=== PATIENT | female | born 1995 | race Caucasian/White ===

== ENCOUNTER 2020-07-23 07:50 | Inpatient (IN) ==
--- NOTE | 2020-07-23 08:13 | History & Physical Report ---
Date of Service July 23, 2020 Assessment & Plan (1) Encounter for induction of labor: Admission and Anticipated Discharge Date Admission Date: July 23, 2020 Patient presents to labor and delivery for elective induction. cervix favorable. plan pitocin induction. arom as indicated. epidural on demand. fetus category one. anticipate . History of Present Illness Chief Complaint: elective induction Primary Care Provider: Ramsey Douglass Patient is a 24yowf with iup at 39 1/7 weeks who presents to labor and delivery for elective induction. Her has been essentially uncomplicated. She had iol in her first for pet at 40 weeks. She has a hx of seizures that are "stress induced". Was seen by Dr. Hilario. She had several in the second trimester but since decreasing activity and improved stress, notes less. Has not had one in quite some time. DR. Hilario does not think this is epilepsy. Has a bicornuate uterus. Growth ultrasound at 32 weeks was wnl. Patient had a +ffn on 06/08. Patient had COVID in Apr and has had a full recovery. labs--A+/ab-/ri/rprnr/hiv-/hepb-/gc/ct-/gtt x 2 neg/gbs neg/ cf/sma-/low risk panorama Allergies Allergy/AdvReac Type Severity Reaction Status Date / Time latex Allergy Rash Verified 07/21/20 10:08 lubricant Allergy Rash Verified 07/21/20 10:08 nickel Allergy swelling Verified 07/21/20 10:08 red dye AdvReac Mild nausea and Verified 07/21/20 10:08 vomiting Home Medications Medication Instructions Recorded Confirmed Type prenat.vits,yrn,vcg-ockv-sztru 1 tab PO DAILY 06/08/20 07/21/20 History [ Vitamin] aspirin 81 mg PO DAILY 07/14/20 07/21/20 History calcium 250 mg PO DAILY 07/14/20 07/21/20 History famotidine 20 mg PO DAILY 07/14/20 07/21/20 History ferrous sulfate 325 mg PO DAILY 07/14/20 07/21/20 History ondansetron HCl 4 mg tablet 4 mg PO Q6H PRN #30 tab 07/14/20 07/21/20 Rx ondansetron HCl 4 mg tablet 4 mg PO TID PRN 5 Days #30 tab 07/14/20 07/21/20 Rx Patient History Medical History (Updated 07/23/20 @ 08:34 by Keri Dejesus MD, FACOG) Bicornuate uterus COVID-19 April 03 2020 Endometriosis Headache disorder Hip dysplasia History of PCOS Seizures Family History Daughter Duplex kidney Duplication of ureter Mother Asthma Grandmother (Maternal) Diabetes Hypertension Grandmother (Paternal) Diabetes Grandfather (Maternal) Heart disease Aunt Cancer Social History Smoking Status: Former smoker Hx Alcohol Use: No Hx Substance Use: No Preferred Language: Turkmen marital status: Single marital status details: FOB: Kenotn([birth year]) [phone] Current Living Situation: Family Current Living Situation Comment: lives with grandmother and daughter, 2 cats, does not clean litter. current occupational status: employed current occupation: [employer] Feels Safe at Home: Yes OB History G1--, 40 weeks, 6#3oz, induction for pet. [employer] History noncontributory. Physical Exam Constitutional: WD/WN, vitals as above Gastrointestinal (Abdomen): soft, nt, gravid Psychiatric: A+Ox3, euthymic affect Genitourinary: cx--80/-2 toco--genesis efm--130s with mod variabiltiy, accels to 160s, no decels Results & Data ([facility]) Vital Signs (Past 12 Hours) Vital Signs Temp Pulse Resp BP 07/23/20 08:05 96 H 118/77 07/23/20 08:04 37.1 C 18 Coding Level of Care Code None Diagnoses Encounter for induction of labor Z34.90
[2020-07-23] MEDS ORDERED: OXYTOCIN 30 UNITS/500 ML BAG IV PRN ×3 (08:19→17:04)
[2020-07-23] MEDS: LACTATED RINGER'S 1,000 ML IV PRN ×2 (08:52→11:42)
[2020-07-23 08:59] LABS: Hematocrit (blood only) 37.1 % (37-47); Hemoglobin 12.5 g/dL (12.0-16.0); Mean Corpuscular Hemoglobin 27.5 pg (25-34); Mean Corpuscular Hgb Conc 33.7 g/dL (32-36); Mean Corpuscular Volume 81.7 fL (80-100); Mean Platelet Volume 9.1 fL (7.4-10.4); Platelet Count 348 K/uL (130-400); RDW Standard Deviation 41.7 fL (36.4-46.3); Red Blood Count 4.54 M/uL (4.2-5.4)
[2020-07-23] MEDS ORDERED: SODIUM CHLORIDE 0.9% INJ 10 ML VIAL ONE (10:49)
[2020-07-23] MEDS ORDERED: BUPIVACAINE 0.25% 30 ML VIAL ONE (10:49)
[2020-07-23] MEDS ORDERED: ePHEDrine sulfate 50 MG/ML AMP ONE (10:49)
[2020-07-23] MEDS ORDERED: fentaNYL citrate 100 MCG/2 ML VIAL ONE (10:50)
[2020-07-23] MEDS ORDERED: fentaNYL 2MCG/ML ROPIVACAINE 1.25MG/ML 100 ML BAG EPI ONE (10:50)
--- NOTE | 2020-07-23 11:45 | Anesthesiology Consultation ---
Date of Service July 23, 2020 Assessment & Plan Chart Review Chart Review: Acceptable Risk for Labor Epidural Consults Requested none History Height/Weight Height: 5 ft Weight: 80.832 kg Allergies Allergy/AdvReac Type Severity Reaction Status Date / Time latex Allergy Rash Verified 07/21/20 10:08 lubricant Allergy Rash Verified 07/21/20 10:08 nickel Allergy swelling Verified 07/21/20 10:08 red dye AdvReac Mild nausea and Verified 07/21/20 10:08 vomiting Medications Home Medications Medication Instructions Recorded Confirmed Last Taken prenat.vits,yrn,ucv-sbya-izvas 1 tab PO DAILY 06/08/20 07/23/20 07/22/20 06:00 [ Vitamin] aspirin 81 mg PO DAILY 07/14/20 07/23/20 07/22/20 0600 calcium 250 mg PO DAILY 07/14/20 07/23/20 07/22/20 06:00 famotidine 20 mg PO BID 07/14/20 07/23/20 07/22/20 20:00 ferrous sulfate 325 mg PO DAILY 07/14/20 07/23/20 07/22/20 06:00 ondansetron HCl 4 mg tablet 4 mg PO Q6H PRN #30 tab 07/14/20 07/21/20 Unknown ondansetron HCl 4 mg tablet 4 mg PO TID PRN 5 Days #30 tab 07/14/20 07/21/20 Unknown Active Medications Generic Name Dose Route Start Last Admin Trade Name Freq PRN Reason Stop Dose Admin Oxytocin 30 units in 500 mls @ 8 mls/hr 07/23/20 08:19 07/23/20 10:31 Pitocin IV 07/25/20 08:18 0.48 units/hr .Q24H PRN 8 mls/hr Labor Induction/Augmentation Titration Protocol 0.48 UNITS/HR Lactated Ringer's 1,000 mls @ 125 mls/hr 07/23/20 08:19 07/23/20 11:42 Lr IV 07/25/20 08:18 125 mls/hr .Q8H PRN Administration L&D Protocol Protocol Past Medical History Medical History Bicornuate uterus COVID-19 April 03 2020 Endometriosis Headache disorder Hip dysplasia History of PCOS Seizures Past Family History Family History Daughter Duplex kidney Duplication of ureter Mother Asthma Grandmother (Maternal) Diabetes Hypertension Grandmother (Paternal) Diabetes Grandfather (Maternal) Heart disease Aunt Cancer Social History Smoking Status: Former smoker Hx Alcohol Use: No Hx Substance Use: No substance use type: does not use Physical Exam Vital Signs Last Vital Signs Temp 37.1 C 07/23/20 09:31 Pulse 97 H 07/23/20 11:42 Resp 18 07/23/20 08:04 BP 130/74 07/23/20 11:42 Pulse Ox 100 07/23/20 11:42 Testing Laboratory Results 07/23/20 08:48
[2020-07-23] MEDS ORDERED: diphenhydrAMINE 50 MG/ML VIAL IV PRN (11:46)
[2020-07-23] MEDS ORDERED: NALOXONE HCL 0.4 MG/1 ML VIAL/CARP IV PRN (11:46)
[2020-07-23] MEDS ORDERED: ePHEDrine sulfate 50 MG/ML AMP IV PRN (11:46)
[2020-07-23] MEDS ORDERED: NALOXONE HCL 1 MG in SODIUM CHLORIDE 0.9% 1000ML 1,000 ML IV PRN (11:46)
[2020-07-23] MEDS ORDERED: fentaNYL 2MCG/ML ROPIVACAINE 1.25MG/ML 100 ML BAG EPI PRN (11:46)
--- NOTE | 2020-07-23 12:31 | Labor Progress Brief Note ---
Date of Service July 23, 2020 Subjective comfortable after epidural Assessment & Plan (1) Encounter for induction of labor: Admission and Anticipated Discharge Date Admission Date: July 23, 2020 continue current management. fetus category one. anticipate . Physical Exam Constitutional: WD/WN, vitals as above Psychiatric: A+Ox3, euthymic affect Genitourinary: cx--3/80/-2 arom--clear toco--q 3-4, pit at 8 efm--130s wtih mod variability, accels to 170s, no decels Results & Data ([facility]) Vital Signs (Past 12 Hours) Vital Signs Temp Pulse Resp BP Pulse Ox 07/23/20 12:27 100 H 99 07/23/20 12:22 77 98 07/23/20 12:18 80 113/63 07/23/20 12:17 83 99 07/23/20 12:16 72 113/65 07/23/20 12:14 76 114/66 07/23/20 12:12 78 114/67 100 07/23/20 12:10 76 117/68 07/23/20 12:08 87 118/69 07/23/20 12:07 82 100 07/23/20 12:06 74 120/65 07/23/20 12:04 110 H 121/70 07/23/20 12:02 88 124/67 100 07/23/20 12:00 78 122/67 07/23/20 11:58 83 121/66 07/23/20 11:57 78 100 07/23/20 11:56 93 H 123/67 07/23/20 11:54 81 122/66 07/23/20 11:52 88 123/68 100 07/23/20 11:50 83 120/62 07/23/20 11:48 86 121/61 07/23/20 11:47 80 100 07/23/20 11:46 120 H 123/63 07/23/20 11:44 93 H 127/68 07/23/20 11:42 97 H 130/74 100 07/23/20 11:40 84 128/63 07/23/20 11:38 83 137/67 07/23/20 11:37 90 98 07/23/20 11:36 72 144/58 H 07/23/20 11:32 88 100 07/23/20 11:30 102 H 124/59 L 07/23/20 11:27 101 H 99 07/23/20 11:26 97 H 130/76 07/23/20 11:22 95 H 100 07/23/20 11:20 95 H 91 07/23/20 11:17 101 H 100 07/23/20 11:12 95 H 89 L 07/23/20 11:07 78 100 07/23/20 11:02 79 100 07/23/20 11:01 73 122/75 07/23/20 10:58 75 119/76 07/23/20 10:57 81 100 07/23/20 09:31 37.1 C 118/77 07/23/20 08:05 96 H 118/77 07/23/20 08:04 37.1 C 18 Coding Level of Care Code None Diagnoses Encounter for induction of labor Z34.90
[2020-07-23] MEDS ORDERED: CALCIUM CARBONATE 500 MG CHEWABLE TAB PO PRN (13:13)
--- NOTE | 2020-07-23 14:37 | Labor Progress Brief Note ---
Date of Service July 23, 2020 Subjective comfortable Assessment & Plan (1) Encounter for induction of labor: Admission and Anticipated Discharge Date Admission Date: July 23, 2020 continue current management. Change since rom. fetus reassuring. anticipate . Physical Exam Constitutional: WD/WN, vitals as above Psychiatric: A+Ox3, euthymic affect Genitourinary: cx--5/75/-2 toco--q2-3, pit at 12 efm--category one Results & Data ([facility]) Vital Signs (Past 12 Hours) Vital Signs Temp Pulse Resp BP Pulse Ox 07/23/20 14:32 88 98 07/23/20 14:27 95 H 99 07/23/20 14:22 78 97 07/23/20 14:20 97 H 125/73 07/23/20 14:17 86 99 07/23/20 14:12 105 H 98 07/23/20 14:07 87 98 07/23/20 14:04 90 107/61 07/23/20 14:02 120 H 98 07/23/20 13:57 86 98 07/23/20 13:52 83 99 07/23/20 13:49 102 H 101/61 07/23/20 13:47 85 98 07/23/20 13:42 85 99 07/23/20 13:37 108 H 99 07/23/20 13:34 96 H 102/55 L 07/23/20 13:32 77 98 07/23/20 13:27 81 99 07/23/20 13:22 118 H 100 07/23/20 13:19 85 105/57 L 07/23/20 13:17 76 99 07/23/20 13:12 77 99 07/23/20 13:07 85 100 07/23/20 13:04 96 H 104/55 L 07/23/20 13:02 78 100 07/23/20 12:57 88 99 07/23/20 12:52 106 H 100 07/23/20 12:50 97 H 99/54 L 07/23/20 12:47 85 100 07/23/20 12:42 91 H 98 07/23/20 12:37 90 99 07/23/20 12:34 103 H 114/66 07/23/20 12:32 77 100 07/23/20 12:28 36.8 C 22 07/23/20 12:27 100 H 99 07/23/20 12:22 77 98 07/23/20 12:18 80 113/63 07/23/20 12:17 83 99 07/23/20 12:16 72 113/65 07/23/20 12:14 76 114/66 07/23/20 12:12 78 114/67 100 07/23/20 12:10 76 117/68 07/23/20 12:08 87 118/69 07/23/20 12:07 82 100 07/23/20 12:06 74 120/65 07/23/20 12:04 110 H 121/70 07/23/20 12:02 88 124/67 100 07/23/20 12:00 78 122/67 07/23/20 11:58 83 121/66 07/23/20 11:57 78 100 07/23/20 11:56 93 H 123/67 07/23/20 11:54 81 122/66 07/23/20 11:52 88 123/68 100 07/23/20 11:50 83 120/62 07/23/20 11:48 86 121/61 07/23/20 11:47 80 100 07/23/20 11:46 120 H 123/63 07/23/20 11:44 93 H 127/68 07/23/20 11:42 97 H 130/74 100 07/23/20 11:40 84 128/63 07/23/20 11:38 83 137/67 07/23/20 11:37 90 98 07/23/20 11:36 72 144/58 H 07/23/20 11:32 88 100 07/23/20 11:30 102 H 124/59 L 07/23/20 11:27 101 H 99 07/23/20 11:26 97 H 130/76 07/23/20 11:22 95 H 100 07/23/20 11:20 95 H 91 07/23/20 11:17 101 H 100 07/23/20 11:12 95 H 89 L 07/23/20 11:07 78 100 07/23/20 11:02 79 100 07/23/20 11:01 73 122/75 07/23/20 10:58 75 119/76 07/23/20 10:57 81 100 04/23/21 09:31 37.1 C 118/77 07/23/20 08:05 96 H 118/77 07/23/20 08:04 37.1 C 18 Coding Level of Care Code None Diagnoses Encounter for induction of labor Z34.90
[2020-07-23] MEDS ORDERED: MINERAL OIL 30 ML UDC ONE (16:46)
--- NOTE | 2020-07-23 17:05 | Delivery Summary ---
Vaginal Delivery Summary Date of Service July 23, 2020 Pre-operative Diagnosis: at 39 0/7 weeks elective induction Post-operative Diagnosis: same Procedure: pitocin induction epidural small first degree laceration and repair EBL: 300cc Anesthesia: epidural Procedure: The patient pushed to deliver a viable male in anuel position. The nose and mouth were bulb suctioned on the perineum and the rest of the was then delivered without difficulty. The baby was vigorous. The nose and mouth were again bulb suctioned and the infant was placed in the maternal abdomen for drying and attention. Cord was clamped and cut at one minute of life. Cord blood and segment obtained. Placenta delivered spontaneous, intact with a three vessel cord. Cervix/sulci/rectum were intact. A first degree perineal laceration was repaired in the normal standard fashion. Hemostasis obtained with dilute pitocin and fundal massage. Apgars were 8/9. Mother and baby doing well at the end of the delivery. Vaginal Delivery Summary and 1st Degree LAC MNP Vaginal Delivery Charge Delivery Type Details: and 1st Degree LAC
[2020-07-23] MEDS ORDERED: bisacodyL 10 MG SUPP PR PRN (17:45)
[2020-07-23] MEDS ORDERED: SUPERCREAM 0.870% 15 GM JAR EXT PRN (17:45)
[2020-07-23] MEDS ORDERED: HYDROCORTISONE ACETATE 25 MG SUPP PR PRN (17:45)
[2020-07-23] MEDS ORDERED: DIPHTHERIA/TETANUS/PERTUSSIS 0.5 ML SYR/VIAL IM ONE (17:45)
--- NOTE | 2020-07-23 18:35 | Anesthesia Procedure Note ---
Date of Service July 23, 2020 Anesthesia Post Epidural Note Vital Signs Vital Signs: Temp Pulse Resp BP Pulse Ox 36.8 C 93 H 20 116/53 L 87 L 07/23/20 14:39 07/23/20 18:04 07/23/20 14:39 07/23/20 18:04 07/23/20 16:49 Notes Mental Status: alert / awake / arousable Nausea / Vomiting: adequately controlled Pain: adequately controlled Airway Patency, RR, SpO2: stable & adequate BP & HR: stable & adequate Hydration State: stable & adequate Neuraxial Anesthesia: was administered and sensory block is resolving Anesthetic Complications: no major complications apparent and Pt Satisfied with anesthetic care Epidural: Removed without complications and With tip intact
[2020-07-23] MEDS: BENZOCAINE 20% AER SPR 82.5 GM CAN EXT PRN (19:47)
[2020-07-23] MEDS: IBUPROFEN 600 MG TAB PO PRN (20:55)
[2020-07-23] MEDS: DOCUSATE SODIUM 100 MG CAP PO SCH (20:56)
[2020-07-23] MEDS: FAMOTIDINE 20 MG TAB PO SCH (20:57)
[2020-07-23] MEDS: ACETAMINOPHEN 325 MG TAB PO PRN (23:37)
[2020-07-24] MEDS: IBUPROFEN 600 MG TAB PO PRN ×3 (02:59→19:54)
[2020-07-24 06:19] LABS: Hematocrit (blood only) 32.9 % (37-47); Hemoglobin 11.1 g/dL (12.0-16.0)
--- NOTE | 2020-07-24 07:24 | Obstetrical Progress Note ---
Date of Service <Inocencia Price DO - Last Filed: 07/24/20 07:24> July 24, 2020 Assessment & Plan <Inocencia Price DO - Last Filed: 07/24/20 07:24> (1) state: PPD #1 - PNL: Rh pos, RI, GBS neg, COVID neg - Feels well today. Eating well, voiding well, ambulating well. - Pain well controlled with ibuprofen 600mg Q4H PRN - Routine care -- OOB, ambulation, diet progression as tolerated - After discharge will have 6 week follow-up with Dr. Dejesus. Subjective <Inocencia Price DO - Last Filed: 07/24/20 07:24> Veronica Augustin is a 24 y/o female who is PPD #1 following spontaneous vaginal delivery at 39+1 weeks. She reports feeling well overall this morning. Moderate abdominal cramping and 5/10 pain well managed on analgesics. Voiding without dysuria. Tolerating meals overnight without difficulty. Patient has been able to ambulate some. She is passing gas. Has persistent lochia with some improvement this morning. Currently . Review of Systems Denies fever or chills. Denies shortness of breath or cough. Denies chest pain. Denies breast pain. Denies dysuria. Denies leg pain or leg swelling. Denies headache or changes in vision. Physical Exam <Inocencia Price DO - Last Filed: 07/24/20 07:24> General: Alert, oriented. No acute distress. Cardiac: Regular rate and rhythm. No murmurs. Respiratory: Clear to auscultation bilaterally a/p, no wheezes/rales/rhonchi. No increased work of breathing. Symmetrical chest rise. No respiratory distress. Abdomen: Soft, nontender, nondistended. Bowel sounds present. Uterus: Uterine fundus firm, palpable 1 cm below umbilicus. Lower Extremities: No lower extremity edema or swelling. No deep calf pain. Desi's negative bilaterally. Results & Data ([facility]) <Inocencia Price DO - Last Filed: 07/24/20 07:24> Vital Signs (Past 12 Hours) Vital Signs Temp Pulse Resp BP Pulse Ox 07/24/20 03:00 37.0 C 84 16 117/71 97 07/23/20 23:30 36.9 C 81 16 98/63 L 98 07/23/20 19:50 37.3 C 93 H 18 112/70 Laboratory Results 07/24/20 07/23/20 07/23/20 Range/Units 05:44 10:07 10:07 WBC (4.8-10.8) K/uL RBC (4.2-5.4) M/uL Hgb 11.1 L (12.0-16.0) g/dL Hct 32.9 L (37-47) % MCV (80-100) fL MCH (25-34) pg MCHC (32-36) g/dL RDW Std Deviation (36.4-46.3) fL RDW Coeff of Martina (11.5-14.5) % Plt Count (130-400) K/uL MPV (7.4-10.4) fL COVID-19 Eval Order Covid19 [facility] SARS-CoV-2, RNA, NAAT NEGATIVE (NEGATIVE) 07/23/20 Range/Units 08:48 WBC 8.80 (4.8-10.8) K/uL RBC 4.54 (4.2-5.4) M/uL Hgb 12.5 (12.0-16.0) g/dL Hct 37.1 (37-47) % MCV 81.7 (80-100) fL MCH 27.5 (25-34) pg MCHC 33.7 (32-36) g/dL RDW Std Deviation 41.7 (36.4-46.3) fL RDW Coeff of Martina 14.0 (11.5-14.5) % Plt Count 348 (130-400) K/uL MPV 9.1 (7.4-10.4) fL COVID-19 Eval Order SARS-CoV-2, RNA, NAAT (NEGATIVE) <Keri Dejesus MD, FACOG - Last Filed: 07/24/20 07:35> Co-Signing Physician Notes Resident Physician Supervision Note: I interviewed and examined the patient. Discussed with Dr. Price and agree with findings and plan as documented in the note. Any exceptions or clarifications are listed here: Doing well. Routine care. Documented By: Keri Dejesus MD, FACOG Resident Activity Tracking <Inocencia Price, DO - Last Filed: 07/24/20 07:24> Resident Involvement: Resident Care Provided Care Provided: OB Delivery
[2020-07-24] MEDS: DOCUSATE SODIUM 100 MG CAP PO SCH ×2 (07:47→19:54)
[2020-07-24] MEDS: ACETAMINOPHEN 325 MG TAB PO PRN ×3 (07:47→23:07)
[2020-07-24] MEDS: FAMOTIDINE 20 MG TAB PO SCH ×2 (07:47→21:30)
[2020-07-24] MEDS: PRENATAL VITAMIN 1 TAB PO SCH (07:47)
[2020-07-24] MEDS ORDERED: NON-FORMULARY MEDICATION (Prenat.Vits,Cal,Min-Iron-Folic Tablet) PO SCH (09:00)
[2020-07-24] MEDS ORDERED: bisacodyL 5 MG TABEC PO SCH (20:00)
[2020-07-25] MEDS: IBUPROFEN 600 MG TAB PO PRN ×3 (04:00→15:18)
--- NOTE | 2020-07-25 07:21 | Obstetrical Progress Note ---
Date of Service July 25, 2020 Assessment & Plan (1) state: PPD#2, d/c instructions reviwed. Subjective Ambulation: ambulating normally Voiding: no voiding problems Passing Gas:: Yes Diet Tolerance:: regular diet Lochia:: Small Feeding Type:: breast feeding Physical Exam Constitutional WD/WN, vitals as above Eyes PERRL, conjunctivae normal, anicteric sclerae Neck normal visual inspection Respiratory normal respiratory effort and able to speak in complete sentences; no respiratory distress and no labored breathing Cardiovascular Rate/Rhythm: regular rate and regular rhythm Extremities: no edema Chest (Breasts) Chest: normal inspection of chest Gastrointestinal (Abdomen) Inspection/Auscultation: abdomen normal to inspection Soft, postgravid Psychiatric A+Ox3, euthymic affect Genitourinary OB Exam Abdomen: + fundal height Fundus: + firm and + relation to umbilicus (fundus just below umbilicus); not tender Results & Data ([facility]) Vital Signs (Past 12 Hours) Vital Signs Temp Pulse Resp BP Pulse Ox 07/24/20 23:45 98.6 F 73 20 110/71 97 07/24/20 19:40 99.0 F 94 H 18 123/85 99
[2020-07-25] MEDS: DOCUSATE SODIUM 100 MG CAP PO SCH (08:37)
[2020-07-25] MEDS: PRENATAL VITAMIN 1 TAB PO SCH (08:38)
--- NOTE | 2020-07-25 09:17 | Communication Note ---
Date of Service: July 25, 2020 MD made aware by RN of patient having pain in R calf *and olea* only when flexion applied to foot or ambulating. This was not present during her exam at rounds this morning (at that time in fact the patient was ambulating without difficulty). Patient has no erythema or edema. Offered to check doppler study on the relevant leg, though musculoskeletal discomfort due to positioning / straining during delivery seems most likely given the lack of any other s/sx of DVT.
[2020-07-25] MEDS: FAMOTIDINE 20 MG TAB PO SCH (10:13)
--- NOTE | 2020-07-25 11:12 | Ultrasound Report ---
RIGHT LOWER EXTREMITY VENOUS DOPPLER CLINICAL HISTORY: Right lower extremity pain. COMPARISON STUDY: No previous studies for comparison. TECHNIQUE: Sonography of the deep venous system of the right lower extremity was performed. Compress ion and augmentation were evaluated. FINDINGS: The right common femoral, superficial femoral and popliteal veins were compressible. Augme ntation was normal. Flow was shown within the deep calf vessels. Sonography of the proximal right yrn f at site of pain revealed no fluid collection, thrombosed vessel or mass. IMPRESSION: No evidence of deep venous thrombus within the right lower extremity. ACT 112: Negative or not required by law. Electronically signed by: Terrell Berrios M.D. 07/25/2020 11:11 AM
[2020-07-25] MEDS: BENZOCAINE 20% AER SPR 82.5 GM CAN EXT PRN (15:40)
--- NOTE | 2020-08-05 10:29 | Coding Query ---
CODING QUERY To promote full compliance with coding requirements relating to patient care, provider participation is requested in all cases of garbage collector supervisor uncertainty. Please assist us with the question(s) below: Coding Question(s): Please clarify reason for induction of labor. Physician's Response(s): at 39 1/7 weeks, elective induction of labor. Thank you Courtney Maciel Principal Diagnosis: "that condition established after study, to be chiefly responsible for occasioning the admission of the patient to the hospital for care." Co-Existing Principal Diagnosis: "when two or more diagnoses equally meet the criteria for principal diagnosis as determined by the circumstances of admission, diagnostic work up, and/or therapy provided, and the Alphabetic Index, Tabular List, or another coding guideline does not provide sequencing direction, any one of the diagnoses may be sequenced first." "When the physician has documented what appears to be a current diagnosis in the body of the record, but has not included the diagnosis in the final diagnostic statement, the physician should be asked whether the diagnosis should be added." (Source [facility]oding [facility] 2 QTR90. p3-4) LAURA
== END 2020-07-25 16:30 | disposition home or self-care (01) | DRG 807 ==
LOC: 4S1 07:50 → 4S2 19:20